=== PATIENT | female | born 1990 | race American Indian/Alaskan Native ===

== ENCOUNTER 2018-02-26 18:17 | Emergency (ER) | payer MEDICAID ==
[2018-02-26] MEDS ORDERED: NACL 0.9% 1000 ML 1,000 ML IV ONE (18:39)
[2018-02-26 19:22] LABS: Basophils % (Auto) 0.4 % (0.0-1.8); Eosinophils # (Auto) 0.5 K/mm3 (0.0-0.4); Eosinophils % (Auto) 5.1 % (0.0-4.3); Hematocrit 28.9 % (30.3-42.9); Hemoglobin 9.1 gm/dl (10.1-14.3); Lymphocytes # (Auto) 2.4 K/mm3 (1.2-5.4); Lymphocytes % (Auto) 24.9 % (13.4-35.0); Mean Corpuscular HGB Conc 32 % (30-34); Mean Corpuscular Volume 75 fl (79-97); Monocytes # (Auto) 0.5 K/mm3 (0.0-0.8); Monocytes % (Auto) 5.5 % (0.0-7.3); Platelet Count 306 K/mm3 (140-440); Red Blood Count 3.84 M/mm3 (3.65-5.03); Red Cell Distribution Width 15.6 % (13.2-15.2)
[2018-02-26 19:24] LABS: Mean Corpuscular Hemoglobin 24 pg (28-32)
[2018-02-26 19:36] LABS: Alanine Aminotransferase 8 units/L (7-56); Albumin 3.8 g/dL (3.9-5); BUN/Creatinine Ratio 14; Blood Urea Nitrogen 7 mg/dL (7-17); Calcium 8.9 mg/dL (8.4-10.2); Hemolysis Index 0
[2018-02-26 21:26] LABS: Bacteria,Urine 1+ /HPF (Negative); Bilirubin,Urine NEG (Negative); Blood,Urine NEG (Negative); Color,Urine Yellow (Yellow); Mucus,Urine 3+ /HPF; Protein,Urine <15 mg/dL mg/dL (Negative)
--- NOTE | 2018-02-26 23:16 | Ultrasound Report ---
FINAL REPORT EXAM: US OB > = 14 WEEKS FETUS HISTORY: +hcg and abd pain TECHNIQUE: Ultrasound obstetrical transabdominal PRIORS: None. FINDINGS: There is single live intrauterine gestation present. cardiac activity present with heart rate of 143 beats per minute Placenta is posterior and grade 0 Small cervical length is 3.7 centimeters biometric measurements were obtained Biparietal diameter 22 weeks 6 days Head circumference 22 weeks 1 day abdominal circumference 21 weeks 1 day Femur length 21 weeks 2 days Following structures were seen appear unremarkable, choroid rectus, cisterna magna, cerebellum, lateral ventricles, stomach, kidneys, urinary bladder, diaphragm, four-chamber view of the heart, three-vessel cord and cord insert. Noted is a choroid plexus cyst There is an echogenic focus in the left ventricle of the heart. Suggest continued followup. The spine was not well visualized Estimated weight today is 417 grams Based on today's exam composite gestational age is 21 weeks 6 days with estimated date of delivery July 03, 2018 IMPRESSION: Single live intrauterine gestation identified estimated at 21 weeks 6 days with estimated date of delivery July 03, 2018 spine not well visualized Choroid plexus cyst noted Echogenic focus within the left ventricle continued followup suggested
--- NOTE | 2018-02-26 23:16 | Emergency Department Report ---
HPI - General Chief Complaint: Abdominal Pain Time Seen by Provider: 02/26/18 21:46 - HPI HPI: 27-year-old demented female presents to the emergency department with complaint of a one to 2 day history of some lower abdominal and/or pelvic discomfort. She denies any fever, dysuria, vaginal bleeding or discharge. She did not take anything for her symptoms prior presentation. Upon arrival to the emergency department, and after getting some labs and an ultrasound done, the patient was found to be . She was unaware that she was but prior to obtaining this information she said "it's possible." She says that she had some light spotting on the fourth of this month that she has irregular menstrual cycles. She says the last cycle where she had a 4-5 day history of vaginal bleeding/flow was in either October or November. With this she would be with one previous miscarriage. She otherwise does not have any past medical history. ED Past Medical Hx - Past Medical History Previous Medical History?: No - Surgical History Past Surgical History?: No - Social History Smoking Status: Never Smoker Substance Use Type: None - Medications Home Medications: Home Medications Medication Instructions Recorded Confirmed Last Taken Type Vits96/Iron Fum/Folic 1 each PO QDAY #30 tablet 02/26/18 Unknown Rx [ Tablet] ED Review of Systems ROS: Stated complaint: STOMACH PAIN Other details as noted in HPI Comment: All other systems reviewed and negative Constitutional: denies: chills, fever Eyes: denies: eye pain, eye discharge, vision change ENT: denies: ear pain, throat pain Respiratory: denies: cough, shortness of breath, wheezing Cardiovascular: denies: chest pain, palpitations Gastrointestinal: denies: nausea, vomiting Genitourinary: other (pelvic pain). denies: urgency, dysuria, discharge Musculoskeletal: denies: back pain, joint swelling, arthralgia Skin: denies: rash, lesions Neurological: denies: headache, weakness, paresthesias Physical Exam - Physical Exam Vital Signs: Vital Signs 02/26/18 18:34 Temperature 98.3 F Pulse Rate 68 Respiratory 16 Rate Blood Pressure 109/59 O2 Sat by Pulse 96 Oximetry ED Course Vital Signs 02/26/18 18:34 Temperature 98.3 F Pulse Rate 68 Respiratory 16 Rate Blood Pressure 109/59 O2 Sat by Pulse 96 Oximetry ED Medical Decision Making - Lab Data Result diagrams: 02/26/18 18:59 02/26/18 18:59 Critical care attestation.: If time is entered above; I have spent that time in minutes in the direct care of this critically ill patient, excluding procedure time. ED Disposition Clinical Impression: Pelvic pain Qualifiers: Weeks of gestation: 21 weeks Qualified Code(s): Z3A.21 - 21 weeks gestation of Disposition: - TO HOME OR SELFCARE Is pt being admited?: No Condition: Stable Instructions: (ED) Additional Instructions: Please follow up with an CLIENT SUPPORT ADMINISTRATOR as soon as possible. Start taking vitamins. Do not take any other medications unless prescribed by your CLIENT SUPPORT ADMINISTRATOR or by a physician. Return to the emergency department with any development of vaginal bleeding, worsening pelvic or abdominal pains, or with any acute distress. Prescriptions: Vits96/Iron Fum/Folic [ Tablet] 1 each PO QDAY #30 tablet Referrals: [facility] [Provider Group] - 3-5 Days [facility] [Provider Group] - 3-5 Days [facility] [Provider Group] - 3-5 Days Time of Disposition: 23:25
[2018-02-26 23:51] VITALS: BP 121/65
== END 2018-02-26 23:50 | disposition home or self-care (01) ==
LOC: ED 18:17
DX: O26.892 Other specified pregnancy related conditions, second trimester (principal); R10.2 Pelvic and perineal pain; Z3A.21 21 weeks gestation of pregnancy
CPT/HCPCS: 36415; 76805; 80053; 81001; 84703; 85025

== ENCOUNTER 2018-10-10 04:07 | Emergency (ER) | payer SELFPAY ==
[2018-10-10 04:17] VITALS: BP 125/67
== END 2018-10-10 10:09 | disposition left against medical advice (07) ==
LOC: ED 04:07
DX: R07.9 Chest pain, unspecified (principal); Z53.21 Procedure and treatment not carried out due to patient leaving prior to being seen by health care provider

== ENCOUNTER 2019-03-23 17:02 | Emergency (ER) | payer OTHER ==
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
[2019-03-23] MEDS ORDERED: IBUPROFEN PO ONE (20:37)
[2019-03-23 22:46] VITALS: BP 118/67
== END 2019-03-23 21:15 | disposition home or self-care (01) ==
LOC: ED 17:02
DX: M25.511 Pain in right shoulder (principal); M54.5 Low back pain; D64.9 Anemia, unspecified; Z79.899 Other long term (current) drug therapy; V41.6XXA Car passenger injured in collision with pedal cycle in traffic accident, initial encounter; Y93.89 Activity, other specified; Y92.410 Unspecified street and highway as the place of occurrence of the external cause; Y99.8 Other external cause status
CPT/HCPCS: 72100; 93005; 93010